=== PATIENT | male | born 1980 | race Caucasian/White ===

== ENCOUNTER 2018-11-11 10:55 | Emergency (ER) | payer SELFPAY ==
[~2018-11-11] VITALS: Ht 167.6 cm; Wt 91.0 kg
[2018-11-11] MEDS ORDERED: HYDROCODONE/ACETAMINOPHEN 5/325MG TABLET PO ONE ×2 (12:00→13:00)
[2018-11-11 14:02] VITALS: BP 158/100
== END 2018-11-11 14:05 | disposition home or self-care (01) ==
LOC: ER 13:56
DX: S72.421A Displaced fracture of lateral condyle of right femur, initial encounter for closed fracture (principal); W17.89XA Other fall from one level to another, initial encounter; Y93.89 Activity, other specified; Y92.89 Other specified places as the place of occurrence of the external cause; Y99.8 Other external cause status
CPT/HCPCS: 29505; 73562; 99283